=== PATIENT | female | born 1955 | race African-American/Black ===

== ENCOUNTER 2016-05-22 12:01 | Emergency (ER) | payer BC ==
--- NOTE | 2016-05-22 16:20 | RAD ---
RIGHT KNEE FOUR VIEWS: Date: 05-22-16 FINDINGS: Mild osteoarthritis is present consisting of mild to moderate medial joint space narrowing and tiny osteophytes. No fracture or dislocation was seen. There probably is a small joint effusion. The p atella appears intact. IMPRESSION: Mild arthritic changes medially. Small joint effusion. POS: HOME
== END 2016-05-22 12:45 | disposition home or self-care (01) ==
LOC: BURERS 12:01
DX: S46.912A Strain of unspecified muscle, fascia and tendon at shoulder and upper arm level, left arm, initial encounter (principal); S80.02XA Contusion of left knee, initial encounter; S80.01XA Contusion of right knee, initial encounter; M62.838 Other muscle spasm; E78.5 Hyperlipidemia, unspecified; V89.2XXA Person injured in unspecified motor-vehicle accident, traffic, initial encounter
CPT/HCPCS: 99284